=== PATIENT | female | born 1995 | race Caucasian/White ===

== ENCOUNTER 2018-04-17 20:55 | Emergency (ER) | payer OTHER ==
[2018-04-17 21:29] LABS: AMORPHOUS SEDIMENT RFX SMALL (NEGATIVE); KETONE, URINE AUTO RFX NEGATIVE (NEGATIVE); LEUKOCYTE ESTERASE UR AUTO RFX NEGATIVE (NEGATIVE); NITRITE, URINE AUTO RFX NEGATIVE (NEGATIVE); RBC, URINE AUTO RFX 1 /HPF (0-3); SPECIFIC GRAVITY UR AUTO RFX 1.009 (1.002-1.035); SQUAM EPITHELIAL CELL UR AURFX 1 /HPF (0-6); WBC, URINE AUTO RFX 1 /HPF (0-3)
[2018-04-17] MEDS: PANTOPRAZOLE 40MG INJ (PROTONIX) (C9113) IV (22:57)
[2018-04-17] MEDS: ONDANSETRON 4MG/2ML VIAL (J2405) IV (22:57)
[2018-04-17 22:59] LABS: BASO # 0.1 10^3/uL (0.0-0.2); BASO % 0.9 % (0.0-1.0); EOS % 14.5 % (0.0-3.0); HEMATOCRIT 37.9 % (36.0-47.0); HEMOGLOBIN 13.1 g/dl (12.0-15.5); IMMATURE GRANULOCYTE % 0.3 % (0-3.0); LYMPH % 30.8 % (24.0-44.0); MEAN CORPUSCULAR HEMOGLOBIN 31.3 pg (27.0-33.0); MEAN CORPUSCULAR HGB CONC 34.6 g/dl (32.0-36.5); MEAN CORPUSCULAR VOLUME 90.5 fl (80.0-96.0); MONO # 0.7 10^3/uL (0.0-0.8); MONO % 10.4 % (0.0-5.0); NEUTROPHILS # 2.8 10^3/uL (1.8-7.7); NEUTROPHILS % 43.1 % (36.0-66.0); PLATELET COUNT, AUTOMATED 289 10^3/uL (150-450); RED BLOOD COUNT 4.19 10^6/uL (4.00-5.40); RED CELL DISTRIBUTION WIDTH 12.5 % (11.5-14.5); WHITE BLOOD COUNT 6.6 10^3/uL (4.0-10.0)
[2018-04-17 23:31] LABS: CONTROL LINE HCG INT CTR LINE PRESENT; HCG, SERUM QUALITATIVE NEGATIVE (NEGATIVE)
[2018-04-17 23:43] LABS: ALBUMIN 3.7 GM/DL (3.2-5.2); ALBUMIN/GLOBULIN RATIO 1.06 (1.00-1.93); ALKALINE PHOSPHATASE 77 U/L (45-117); ALT/SGPT 29 U/L (12-78); ANION GAP 7 MEQ/L (8-16); AST/SGOT 25 U/L (7-37); BILIRUBIN,DIRECT 0.1 MG/DL (0.0-0.2); BILIRUBIN,TOTAL 0.5 MG/DL (0.2-1.0); BLOOD UREA NITROGEN 9 MG/DL (7-18); CALCIUM LEVEL 9.4 MG/DL (8.5-10.1); CARBON DIOXIDE LEVEL 28 MEQ/L (21-32); CHLORIDE LEVEL 107 MEQ/L (98-107); CREATININE FOR GFR 0.86 MG/DL (0.55-1.30); GLUCOSE, FASTING 91 MG/DL (70-100); LIPASE 115 U/L (73-393); POTASSIUM SERUM 3.7 MEQ/L (3.5-5.1); SODIUM LEVEL 142 MEQ/L (136-145); TOTAL PROTEIN 7.2 GM/DL (6.4-8.2)
== END 2018-04-18 00:08 | disposition home or self-care (01) ==
LOC: M ED 04-18 00:08
DX: R10.9 Unspecified abdominal pain (principal); K21.9 Gastro-esophageal reflux disease without esophagitis
CPT/HCPCS: C9113

== ENCOUNTER 2018-11-08 06:42 | Emergency (ER) | payer OTHER ==
[~2018-11-08] VITALS: Ht 154.9 cm; Wt 47.3 kg
[~2018-11-08 06:42] MED LIST: OMEP40CA2 PO
[2018-11-08] MEDS ORDERED: ONDANSETRON 4MG/2ML VIAL (J2405) IV ONE (07:30)
[2018-11-08] MEDS ORDERED: NS 1,000 ML IV ONE (07:30)
[2018-11-08 07:37] LABS: BASO % 0.2 % (0.0-1.0); EOS # 0.5 10^3/uL (0.0-0.50); EOS % 4.8 % (0.0-3.0); HEMATOCRIT 42.2 % (36.0-47.0); HEMOGLOBIN 14.1 g/dl (12.0-15.5); LYMPH # 1.7 10^3/uL (1.5-6.5); LYMPH % 15.9 % (24.0-44.0); MEAN CORPUSCULAR HGB CONC 33.4 g/dl (32.0-36.5); MEAN CORPUSCULAR VOLUME 92.7 fl (80.0-96.0); MONO # 0.6 10^3/uL (0.0-0.8); MONO % 5.3 % (0.0-5.0); NEUTROPHILS # 7.9 10^3/uL (1.8-7.7); NEUTROPHILS % 73.5 % (36.0-66.0); PLATELET COUNT, AUTOMATED 256 10^3/uL (150-450); RED BLOOD COUNT 4.55 10^6/uL (4.00-5.40); WHITE BLOOD COUNT 10.8 10^3/uL (4.0-10.0)
[2018-11-08 08:06] LABS: HCG, SERUM QUALITATIVE NEGATIVE (NEGATIVE)
[2018-11-08 08:08] LABS: ALBUMIN 4.2 GM/DL (3.2-5.2); ALT/SGPT 27 U/L (12-78); BILIRUBIN,DIRECT 0.2 MG/DL (0.0-0.2); BILIRUBIN,TOTAL 0.5 MG/DL (0.2-1.0); BLOOD UREA NITROGEN 17 MG/DL (7-18); CALCIUM LEVEL 9.2 MG/DL (8.5-10.1); CARBON DIOXIDE LEVEL 25 MEQ/L (21-32); CHLORIDE LEVEL 105 MEQ/L (98-107); CREATININE FOR GFR 0.87 MG/DL (0.55-1.30); GLOMERULAR FILTRATION RATE > 60.0 (>60); GLUCOSE, FASTING 95 MG/DL (70-100); POTASSIUM SERUM 4.1 MEQ/L (3.5-5.1); SODIUM LEVEL 137 MEQ/L (136-145); TOTAL PROTEIN 7.5 GM/DL (6.4-8.2)
[2018-11-08] MEDS ORDERED: ZOFR4TAB14 PO (08:27)
[2018-11-08 08:29] VITALS: BP 120/65
== END 2018-11-08 09:07 | disposition home or self-care (01) ==
LOC: M ED 06:42
DX: A08.4 Viral intestinal infection, unspecified (principal)
CPT/HCPCS: 80048; 80076; 84703; 85025; 96374; 99284; J2405

== ENCOUNTER → 2018-12-28 | Outpatient (REF) | payer BC ==
[~2018-12-28] MED LIST changes: +ZOFR4TAB14 PO
[2018-12-28 11:53] LABS: BASO # 0.1 10^3/uL (0.0-0.2); BASO % 0.9 % (0.0-1.0); EOS # 0.6 10^3/uL (0.0-0.50); EOS % 11.4 % (0.0-3.0); HEMATOCRIT 41.5 % (36.0-47.0); HEMOGLOBIN 13.8 g/dl (12.0-15.5); LYMPH # 2.1 10^3/uL (1.5-6.5); LYMPH % 37.7 % (24.0-44.0); MEAN CORPUSCULAR HEMOGLOBIN 31.2 pg (27.0-33.0); MEAN CORPUSCULAR HGB CONC 33.3 g/dl (32.0-36.5); MEAN CORPUSCULAR VOLUME 93.7 fl (80.0-96.0); MONO # 0.5 10^3/uL (0.0-0.8); NEUTROPHILS # 2.2 10^3/uL (1.8-7.7); NEUTROPHILS % 40.8 % (36.0-66.0); PLATELET COUNT, AUTOMATED 339 10^3/uL (150-450); RED BLOOD COUNT 4.43 10^6/uL (4.00-5.40); WHITE BLOOD COUNT 5.5 10^3/uL (4.0-10.0)
[2018-12-28 12:32] LABS: ALBUMIN 4.6 GM/DL (3.2-5.2); ALT/SGPT 31 U/L (12-78); BILIRUBIN,TOTAL 0.7 MG/DL (0.2-1.0); BLOOD UREA NITROGEN 12 MG/DL (7-18); CALCIUM LEVEL 9.4 MG/DL (8.5-10.1); CARBON DIOXIDE LEVEL 28 MEQ/L (21-32); CHLORIDE LEVEL 104 MEQ/L (98-107); CREATININE FOR GFR 0.93 MG/DL (0.55-1.30); GLOMERULAR FILTRATION RATE > 60.0 (>60); GLUCOSE, FASTING 88 MG/DL (70-100); POTASSIUM SERUM 4.1 MEQ/L (3.5-5.1); SODIUM LEVEL 138 MEQ/L (136-145); TOTAL PROTEIN 7.8 GM/DL (6.4-8.2)
[2018-12-28 13:44] LABS: FREE T4 1.19 NG/DL (0.76-1.46)
== END ==
LOC: M SFHCPLAZ 10:14
PROVIDERS: ATTEND Nurse Practitioner Family
DX: Z30.9 Encounter for contraceptive management, unspecified (principal); R79.89 Other specified abnormal findings of blood chemistry

== ENCOUNTER 2019-11-10 05:45 | Emergency (ER) | payer BC, OTHER ==
[~2019-11-10] VITALS: Ht 154.9 cm; Wt 47.1 kg
[~2019-11-10 05:45] MED LIST changes: -OMEP40CA2 PO; +OMEP40CA97 PO
[2019-11-10] MEDS ORDERED: GI COCKTAIL 50ML BTL(HYOSCYAMINE/MAALOX/LIDOCAINE VISCOUS)(1:3:1) PO ONE (06:15)
[2019-11-10 06:23] LABS: BASO # 0.1 10^3/uL (0.0-0.2); BASO % 0.8 % (0.0-1.0); EOS # 0.9 10^3/uL (0.0-0.5); EOS % 13.9 % (0.0-3.0); HEMATOCRIT 42.8 % (36.0-47.0); HEMOGLOBIN 13.9 g/dl (12.0-15.5); MEAN CORPUSCULAR HEMOGLOBIN 31.1 pg (27.0-33.0); MEAN CORPUSCULAR HGB CONC 32.5 g/dl (32.0-36.5); MEAN CORPUSCULAR VOLUME 95.7 fl (80.0-96.0); MONO # 0.4 10^3/uL (0.0-0.8); NEUTROPHILS # 3.1 10^3/uL (1.5-8.5); NEUTROPHILS % 48.1 % (36.0-66.0); PLATELET COUNT, AUTOMATED 296 10^3/uL (150-450); RED BLOOD COUNT 4.47 10^6/uL (4.00-5.40); WHITE BLOOD COUNT 6.5 10^3/uL (4.0-10.0)
[2019-11-10] MEDS ORDERED: ONDANSETRON 4MG/2ML VIAL (J2405) IV ONE (06:45)
[2019-11-10] MEDS ORDERED: PANTOPRAZOLE SODIUM 40 MG in D5W 50 ML IV SCH (06:45)
[2019-11-10 06:54] LABS: ALBUMIN 4.3 GM/DL (3.2-5.2); ALT/SGPT 29 U/L (12-78); BILIRUBIN,DIRECT 0.3 MG/DL (0.0-0.2); BILIRUBIN,TOTAL 0.9 MG/DL (0.2-1.0); BLOOD UREA NITROGEN 10 MG/DL (7-18); CARBON DIOXIDE LEVEL 23 MEQ/L (21-32); CHLORIDE LEVEL 108 MEQ/L (98-107); CREATININE FOR GFR 0.92 MG/DL (0.55-1.30); GLOMERULAR FILTRATION RATE > 60.0 (>60); GLUCOSE, FASTING 100 MG/DL (70-100); LIPASE 83 U/L (73-393); POTASSIUM SERUM 3.8 MEQ/L (3.5-5.1); SODIUM LEVEL 139 MEQ/L (136-145); TOTAL PROTEIN 7.6 GM/DL (6.4-8.2)
[2019-11-10] MEDS ORDERED: PANTOPRAZOLE 40MG INJ (PROTONIX) (C9113) IV ONE (07:00)
[2019-11-10] MEDS ORDERED: OMEP40CA97 PO (08:17)
[2019-11-10 08:35] VITALS: BP 111/63
== END 2019-11-10 08:36 | disposition home or self-care (01) ==
LOC: M ED 05:45
DX: K21.9 Gastro-esophageal reflux disease without esophagitis (principal)
CPT/HCPCS: 80048; 80076; 81001; 83690; 84702; 85025; 96374; 96375; 99284; C9113; J2405